=== PATIENT | female | born 1995 | race African-American/Black ===

== ENCOUNTER 2025-02-13 17:42 | Emergency (ER) | payer MEDICAID ==
[~2025-02-13] VITALS: Ht 165.1 cm; Wt 172.0 kg
[2025-02-13 17:48] VITALS: O2SAT 99
[2025-02-13] MEDS ORDERED: KETO10TA2 MT (20:55)
[2025-02-13] MEDS: IBUPROFEN 600MG TABLET PO SCH (20:57)
[2025-02-13 20:58] VITALS: BP 141/70; PULSE 55; RESP 14; TEMP 36.7; O2SAT 98
== END 2025-02-13 21:21 | disposition home or self-care (01) ==
LOC: ER 17:42
DX: M25.552 Pain in left hip (principal); M79.672 Pain in left foot; M25.562 Pain in left knee; Z91.018 Allergy to other foods; W01.0XXA Fall on same level from slipping, tripping and stumbling without subsequent striking against object, initial encounter; Y93.89 Activity, other specified; Y92.89 Other specified places as the place of occurrence of the external cause; Y99.8 Other external cause status
CPT/HCPCS: 99284; 29505; 93971; 81025; 73502; 73562; 73610; 73630; A6449